=== PATIENT | male | born 1960 | race Caucasian/White ===

== ENCOUNTER → 2019-07-14 | Outpatient (CLI) | payer OTHER | LOC: SJCVC 12:10 → SJCVCIMAG 12:10 | DX: Z01.818 Encounter for other preprocedural examination (principal); I08.8 Other rheumatic multiple valve diseases; I44.30 Unspecified atrioventricular block; I65.23 Occlusion and stenosis of bilateral carotid arteries; R94.31 Abnormal electrocardiogram [ECG] [EKG]; I42.9 Cardiomyopathy, unspecified; I13.2 Hypertensive heart and chronic kidney disease with heart failure and with stage 5 chronic kidney disease, or end stage renal disease; N18.6 End stage renal disease; I50.43 Acute on chronic combined systolic (congestive) and diastolic (congestive) heart failure; I25.10 Atherosclerotic heart disease of native coronary artery without angina pectoris; I48.92 Unspecified atrial flutter; R53.83 Other fatigue; E78.00 Pure hypercholesterolemia, unspecified; F17.200 Nicotine dependence, unspecified, uncomplicated; Z99.2 Dependence on renal dialysis; Z79.899 Other long term (current) drug therapy ==

== ENCOUNTER 2019-07-21 10:47 | Inpatient (IN) | payer OTHER ==
[2019-07-21] VITALS (13 sets, daily range): BP systolic 113–138; BP diastolic 77–97
[~2019-07-21] VITALS: Ht 180.3 cm; Wt 101.3 kg
--- NOTE | ~2019-07-21 | HC ---
[facility] [place] [address] CONSULTATION Name: DEANA GOMEZ Gabo Room #: 213-P [facility]#: [id number] Admission: 07/21/19 Attend Phys: Tao Reyes MD, Discharge: Date of : 62 Report #: [id number] THIS REPORT FOR: cc: Ludmila Nguyễn Karen K. RNP Al-Absi, Ahmed I. MD ~ CC: Tao Nguyễn DATE OF SERVICE: 07/22/2019 REASON FOR THE CONSULTATION: End-stage renal disease. REASON FOR THE PRESENTATION: Post-cardiac cath. HISTORY OF PRESENT ILLNESS: A 59-year-old with past medical history of end-stage renal disease, maintained on hemodialysis. He was in the cardiac cath yesterday having a left- and right-sided heart catheterization for progressive dyspnea and severe left ventricular dysfunction that was found on the echo. Apparently, the patient has been on dialysis for the last 18 months. He attributed his end-stage renal disease due to uncontrolled hypertension. He dialyzes every Saturday, Saturday, Saturday. He was found to have significant pulmonary artery pressure. He was admitted for further evaluation and aggressive dialysis regimen. I was asked to evaluate his needs for daily dialysis needs to attain better volume control. MEDICATIONS: 1. Lisinopril. 2. Flomax. 3. Eliquis. 4. Metoprolol. PAST MEDICAL HISTORY: 1. Severe hypertension, uncontrolled. 2. Cardiomyopathy. 3. COPD. 4. Degenerative joint disease. 5. Post-hernia repair. 6. Remote history of heavy tobacco abuse. SOCIAL HISTORY: . Lives with his father. ALLERGIES: None. REVIEW OF SYSTEMS: GENERAL: No fever or chills. [facility] [address] [place] [address] CONSULTATION Name: DEANA GOMEZ Room #: 213-P [facility] Marilia#: [id number] Admission: 07/21/19 Attend Phys: Tao Reyes MD, Discharge: Date of : 62 Report #: [id number] CARDIOVASCULAR: No chest pain or palpitation. Significant for dyspnea on exertion. PULMONARY: Significant for dyspnea on exertion. GASTROINTESTINAL: No nausea or vomiting. GENITOURINARY: Minimal urine. No frequency, no urgency. MUSCULOSKELETAL: Occasional back pain. LABORATORY VALUES: Reviewed. Hemoglobin is 11.4. Sodium is 136, BUN is 46, creatinine 7.2. ASSESSMENT, IMPRESSION, PLAN: 1. End-stage renal disease. 2. Cardiomyopathy. 3. Hypertension. 4. Severe pulmonary hypertension. 5. We will work on daily dialysis and ultrafiltration. 6. We will discuss with the cardiac team regarding his pulmonary hypertension. 7. Resume his usual cardiomyopathy medications. 8. We will continue to follow. By: 0747 0815 Shahriar Brunner MD /nt
--- NOTE | ~2019-07-21 | H ---
[facility] [place] [address] HISTORY AND PHYSICAL Name: DEANA GOMEZ Room #: [facility]#: [id number] Admission: 07/21/19 Attend Phys: Tao Reyes MD, Discharge: Date of : 62 Report #: [id number] THIS REPORT FOR: cc: Ludmila Nguyễn Karen K. RNP ~ CC: Tao Nguyễn DATE OF SERVICE: 07/21/2019 HISTORY OF PRESENT ILLNESS: The patient is a 59-year-old male who I had brought in for right and left heart catheterization with some progressive dyspnea, shortness of breath and severe LV dysfunction in the office last week on an echo. He has been on end-stage kidney disease with hemodialysis for the last 18 months or so, but became progressively more short of breath and dyspneic. Right and left heart catheterization was performed, which revealed severe pulmonary hypertension and wedge pressure in the 30-32, PA pressure of 70s over 30s with diminished cardiac output, cardiac index. We placed him on admission for more aggressive diuresis and titration of medications. He is considering renal transplant, although at this state, he would not be a candidate. His coronary disease was mild in 3-vessel, but this LV dysfunction is relatively new since he was lost to follow up for me since 2014 until last week. I was trying to titrate up his beta kelly. He did not tolerate at all. So, he has held that for 2 days. He has been on Lasix. He makes some urine. Dialysis is Saturday, Saturday and Saturday. Lisinopril 40, Flomax, Eliquis 2.5 q. 12 hours, metoprolol 100, which he held, we try to increase him to 100, he did not tolerate this. PAST MEDICAL HISTORY: Positive for this, now idiopathic cardiomyopathy with a significant cardiorenal issue here with mild coronary disease, longstanding hypertension, hernia repair, vein surgery, DJD, COPD, prior heavy tobacco and alcohol. SOCIAL HISTORY: He is , has children. He lives with his father. He has disability. He is a prior heavy tobacco user, current little to a few drinks a week and a few cigarettes a day now, he states. Some caffeine. ALLERGIES: No known drug allergies. FAMILY HISTORY: Did not know his parents' medical history. REVIEW OF SYSTEMS: Negative except for stated above, progressive fatigue, shortness of breath and dyspnea. Marked increase in fatigue. No syncope. PHYSICAL EXAMINATION: [facility] [address] [place] [address] HISTORY AND PHYSICAL Name: DEANA GOMEZ Room #: [facility]#: [id number] Admission: 07/21/19 Attend Phys: Tao Reyes MD, Discharge: Date of : 62 Report #: [id number] GENERAL: He is not in acute distress. He is mildly dyspneic. VITAL SIGNS: Blood pressure is 120s/80s-90s pulse is 95-100. HEENT: Eyes reveal xanthelasmas. Pharynx is clear. NECK: Shows some evidence of JVD at approximately 4 cm. LUNGS: Clear anteriorly, diminished in the bases. Crackles are noted bilaterally. CARDIOVASCULAR: S1 and S2. There is a faint S3 summation gallop, faint holosystolic murmur at the apex. ABDOMEN: Soft, slightly distended. EXTREMITIES: Reveal trace of edemas. Pulses diminished, but intact. NEUROLOGIC: Nonfocal. SKIN: Warm and dry without xanthoma or ulcer. MUSCULOSKELETAL: Generalized arthritic changes. ASSESSMENT: 1. Severe apparent idiopathic cardiomyopathy, possibly hypertensive induced. 2. End-stage renal disease, on hemodialysis with marked volume overload. 3. Mild coronary artery disease. 4. History of longstanding hypertension. 5. Chronic obstructive pulmonary disease with prior heavy tobacco use. 6. Prior alcohol abuse. RECOMMENDATIONS AND PLAN: The patient was having worked up for renal transplant. Certainly we have got significant issues prior to consideration of that. We will ask Nephrology consult and to try to remove some of this fluid and need to titrate up medications as tolerated here. We have some blood pressure to play with here. His cardiac index is slightly over 2. Certainly a significant issue here and we will try to make some strides here with medications and volume overload. By: 1407 1423 /nt
[2019-07-21 11:32] LABS: HEMATOCRIT 35.7 % (42.0-52.0); HEMOGLOBIN 11.8 gm/dL (14.0-18.0); MCH 33.3 pg (26.0-34.0); MCHC 32.9 g/dL (28.0-37.0); MCV 101.1 fL (80.0-100.0); RBC 3.53 mil/uL (4.50-6.00); RDW 16.3 % (10.5-14.5); WBC 6.5 thou/uL (4.0-11.0)
[2019-07-21 11:44] LABS: CALCIUM 9.9 mg/dL (8.5-10.1); CREATININE 7.2 mg/dL (0.7-1.3); POTASSIUM 4.7 mmol/L (3.5-5.1)
[2019-07-21] MEDS ORDERED: LASIX 40 MG TAB40 MG PO (12:17)
[2019-07-21] MEDS ORDERED: HYDRALAZINE HC100 MG PO (12:18)
[2019-07-21] MEDS ORDERED: LISINOPRIL2.5 MG PO (12:19)
[2019-07-21] MEDS ORDERED: FLOMAX0.4 MG PO (12:20)
[2019-07-21] MEDS ORDERED: ELIQUIS2.5 MG PO (12:21)
[2019-07-21] MEDS ORDERED: TOPROL XL100 MG PO (12:22)
--- NOTE | 2019-07-21 13:22 | EKG ---
[facility] [place] [address] ELECTROCARDIOGRAM REPORT Name: DEANA GOMEZ Room #: [facility]#: [id number] Admission: 07/21/19 Attend Phys: Tao Reyes MD, Discharge: Date of : 62 Report #: [id number] THIS REPORT FOR: cc: Ludmila Nguyễn Karen K. RNP Couchonnal, Luis F. MD ~ THIS REPORT FOR: //name// [facility] Test Date: 2019-07-21 Test Time: 12:41:36 Pat Name: DEANA GOMEZ Department: Room: Gender: Rn Resource Nurse: Moncho GARCIA : 1960 Requested By: Tao Reyes Order Number: [id number] MD: Richar Laguerre Measurements Intervals [place] Rate: 98 P: 57 DE: 143 QRS: -55 QRSD: 144 T: 104 QT: 377 QTc: 482 Interpretive Statements Sinus rhythm Left bundle branch block No previous ECG available for comparison Electronically Signed On 07-21-2019 13:21:24 CDT by Richar Laguerre [email or web address] <ELECTRONICALLY SIGNED> By: Richar Laguerre MD 07/21/19 1321 1241 1241 Richar Laguerre MD /EPI
--- NOTE | 2019-07-21 16:38 | CATHLAB ---
[facility] [place] [address] INVASIVE PROCEDURE REPORT Name: JASONDEANA Room #: 213-P [facility] DAE GauthierMaryjoJessie#: [id number] Admission: 07/21/19 Attend Phys: Tao Reyes MD, Discharge: Date of : 62 Report #: [id number] THIS REPORT FOR: cc: Ludmila Nguyễn Karen K. RNP Mancuso, Gerald M. MD [facility] ~ APPROVED REPORT Study performed: 07/21/2019 12:42:25 Patient Details Patient Status: Out-Patient Room #: The patient is a 59 year-old male Event Personnel Tao Reyes Recreational Facilities Motel Manager, Grant Amaro RN, Elina Regan RTR, Michele Sandoval Roberta Monitor Procedures Performed Art Access - R femoral artery* Rickey Access - R femoral vein Hemostasis w/ Mynx Hemostasis with Manual pressure Right and Left Heart Cath w/or w/o Coronarie [id number] [facility] Renal Bilateral Peripheral Angiography [id number] CVRENALBIL 40444 Initial Mod Sed Same Phys/QHP Gr5y 651997 33644 Mod Sed Same Phys/QHP Ea 477125 Indication Chest pain Procedure Narrative The Right Groin^ was infiltrated with 1% Lidocaine subcutaneous anesthesia. A PINNACLE 6FR Sheath #[id number] sheath was inserted into the RFA 6F^. Coronary angiography was performed using coronary diagnostic catheters. The right coronary system was accessed and visualized with a JR4 catheter. The left coronary system was accessed and visualized with a JL5 catheter. The left ventricle was accessed and visualized with a STR PIG catheter. Left ventriculogram was performed in 30 degree projection. Hemostasis was obtained with manual pressure following sheath removal without any complications. The patient tolerated the procedure well and there were no complications associated with the procedure. There was no hematoma. Intraoperative Conscious Sedation Sedation start time: 1317 Case end Time: [facility] [place] [address] INVASIVE PROCEDURE REPORT Name: DEANA GOMEZ Room #: 213-P [facility]#: [id number] Admission: 07/21/19 Attend Phys: Tao Reyes, Discharge: Date of : 62 Report #: [id number] 1420 Fentanyl 100 mcg Versed 1.5 mg Fluoro Time: 1911.00 minutes Dose: DAP 66339.30 cGycm2 1011 mGy Contrast Type and Amount: Omnipaque 135 ml Hemodynamics The right atrial mean pressure is 29/24/26 mmHg. The right ventricular pressure is 61/37 mmHg. The pulmonary artery pressure is 69/42 mmHg with a mean of 52 mmHg. The mean pulmonary capillary wedge pressure is 29 mmHg. The aortic pressure is 131/89 mmHg with a mean of 103 mmHg. The left ventricular pressure is 124/18 mmHg with a mean of mmHg. The cardiac output using thermo method is 6.10 L/min. The cardiac index using thermo method is 2.84 L/min/m2. Conclusion #1. Successful right heart catheterization with market elevation in pulmonary pressures and pulmonary capillary wedge pressure see above hemodynamics. #2 left ventriculogram significantly dilated left ventricle with severe global hypokinesis EF 20% range with 1-2+ mitral regurgitation. #3 large left main with no significant occlusive disease giving rise to LAD and circumflex #4 LAD extends around the apex with mild irregularities no occlusive disease #5 circumflex OM nondominant with mild disease. #6 dominant right coronary artery mild Abdoulaye disease. No occlusive disease #7 left renal artery has an eccentric proximal lesion of 70% with severe distal attenuated disease #8 the right renal artery also has mild irregularity but is of severe diffusely attenuated disease Recommendations and plan: Patient is significantly volume overloaded severe suspected hypertensive and/or alcohol idiopathic cardiomyopathy. Market volume overload. Patient will be admitted to the hospital for attempted diuresis Nephrology consult patient is currently hemodialysis patient however is making some urine. Dialysis to remove significant volume in [address] [address] INVASIVE PROCEDURE REPORT Name: DEANA GOMEZ Room #: 213-P [facility]..#: [id number] Admission: 07/21/19 Attend Phys: Tao Reyes, Discharge: Date of : 62 Report #: [id number] addition. Titration of medications. He is hemodynamically stable upon transfer to the CCU. <ELECTRONICALLY SIGNED> By: Tao Reyes MD, FACC 07/21/191636 36 36 Tao Reyes MD, FACC /INF
--- NOTE | 2019-07-21 17:24 | NUR ---
PT ADMITED FROM [facility]. ADMISSION HX AND ASSESSMENT COMPLETED. VSS. RIGHT GROIN INCISION C/D/I. NO HAMATOMA NOTED. POST CARDIAC CATH INSTRUCTIONS GIVEN TO PT. PT VERBERLISED UNDERSTANDING. WILL CONTINUE TO MONITOR.
[2019-07-22] VITALS (15 sets, daily range): BP systolic 111–166; BP diastolic 62–99
[2019-07-22 00:58] LABS: HEMATOCRIT 32.2 % (42.0-52.0); HEMOGLOBIN 10.7 gm/dL (14.0-18.0)
--- NOTE | 2019-07-22 03:15 | NUR ---
Pt A&Ox4. VSS afebrile. SR with BBB on monitor. STBBB on monitor presently. Pt c/o R groin pain while getting vs at 2345. Hematoma noted. Pressure applied. Charge ns and preceptor notified and assisted with holding pressure. Dr Reyes notified of hematoma. Pt on strict bedrest. Am eliquis will be held. Stat hg done = 10. Morphine given x2 so far for pain 10/06 to right groin site.Instructed pt on strict bedrest and , to keep right leg straight. Right leg has good pulses and is warm to touch, O2 sats WNl 94- 100% on RA.
[2019-07-22 07:45] LABS: HEMATOCRIT 34.7 % (42.0-52.0); HEMOGLOBIN 11.4 gm/dL (14.0-18.0); MCH 33.3 pg (26.0-34.0); MCHC 32.9 g/dL (28.0-37.0); MCV 101.1 fL (80.0-100.0); RBC 3.43 mil/uL (4.50-6.00); RDW 16.6 % (10.5-14.5); WBC 7.8 thou/uL (4.0-11.0)
[2019-07-22 08:12] LABS: ALBUMIN 3.7 g/dL (3.4-5.0); CALCIUM 9.6 mg/dL (8.5-10.1); PHOSPHORUS 7.4 mg/dL (2.5-4.9)
[2019-07-22 08:17] LABS: POTASSIUM 5.8 mmol/L (3.5-5.1)
--- NOTE | 2019-07-22 09:33 | NUR ---
Pt had no further bleeding noted at right groin site. Hematoma has not increased. Pt insructed on bedrest and to keep leg straight. Day shift ns was notified to hold am eliquis. Hr slightly tachy but other VSS. No c/o Cp tonight but c/o SOA with head flat. O2 applied per preceptor. Good femoral and pedal pulses noted. Legs and feet are warm to touch. pain decreased with morphine given as ordered. Pt slept after second dose of morphine and benadryl for itching. Notified day shift ns that phosphate binder is needed to be ordered today when dr makes rounds per pt request.
--- NOTE | 2019-07-22 09:52 | EKG ---
[facility] [place] [address] ELECTROCARDIOGRAM REPORT Name: DEANA GOMEZ Gabo Room #: 213-[facility] M..#: [id number] Admission: 07/21/19 Attend Phys: Tao Reyes MD, Discharge: Date of : 62 Report #: [id number] THIS REPORT FOR: cc: Ludmila Nguyễn Karen K. RNP Lundgren, Craig H. MD [facility] ~ THIS REPORT FOR: //name// [facility] Test Date: 2019-07-22 Test Time: 07:16:33 Pat Name: DEANA GOMEZ Department: Room: 213 Gender: M Call Manager: RAJ : 1960 Requested By: Tao Reyes Order Number: [id number] MD: Deyvi Nelson Measurements Intervals [place] Rate: 98 P: IN: QRS: -54 QRSD: 150 T: 111 QT: 387 QTc: 495 Interpretive Statements Atrial fibrillation Left bundle branch block Compared to ECG 07/21/2019 12:41:36 Atrial fibrillation has replaced atrial flutter Electronically Signed On 07-22-2019 9:50:48 CDT by Deyvi Nelson [email or web address] <ELECTRONICALLY SIGNED> By: Deyvi Nelson MD, [facility] 07/22/19 0950 0716 0716 Deyvi Nelson MD, [facility] /EPI
--- NOTE | 2019-07-22 16:52 | NUR ---
PT CARE ASSUMED APPROX 0700. ASSESSMENTS CHARTED. DENIES PAIN AND SOA. VSS. PT COMPLETED HD THIS SHIFT WITHOUT ISSUE. UP WITH STEADY GAIT. RIGHT GROIN POST CATH SITE C/D/I WITHOUT HEMATOMA. PT TOLERATING POC. DENIES QUESTIONS OR CONCERNS REGARDING POC. NO DISTRESS NOTED.
--- NOTE | 2019-07-22 17:52 | NUR ---
PT WOKE UP AFTER HD AGITATED AND WANTING TO LEAVE AMA. DR VAUGHN WAS NOTIFIED AND CAME TO THE BEDSIDE TO TALK TO PT ABOUT POC AND CLINICAL STATE. PT REMAINED ADAMANT TO LEAVE. IV WAS REMOVED BUT PT REFUSED TO SIGN AMA PAPERWORK. PT REPORTED THAT HE WAS NOT UPSET BUT HE FELT GOOD ENOUGH TO DRIVE HOME. WHEN ASKED WHY HE COULDN'T SIGN THE AMA FORM IF HE WASN'T UPSET HE REPORTED THAT "THE FORM IS A LIE." SECURITY WAS PRESENT INTIIALLY AND MAINTAINER OPERATOR NOTIFIED. RODERICK AWARE. PT LEAVING UNIT AT THIS TIME.
[2019-07-23 07:07] LABS: HEP B SURFACE Ab(ANTI-HBS Reactive (()); HEPATITIS B SURFACE AG Negative (Negative)
== END 2019-07-22 18:15 | disposition left against medical advice (07) | DRG 286 ==
LOC: CATH 10:47 → 2N 13:55 → CATH 14:52 → 2N 15:06 → CATH 15:06 → 2N 07-22 18:15
PROVIDERS: Hospitalist; ADMIT Internal Medicine Cardiovascular Disease
PROC: B2111ZZ Fluoroscopy of Multiple Coronary Arteries using Low Osmolar Contrast (ICD-10-PCS; principal; 2019-07-21)
PROC: 4A023N8 Measurement of Cardiac Sampling and Pressure, Bilateral, Percutaneous Approach (ICD-10-PCS; principal; 2019-07-21)
PROC: B2151ZZ Fluoroscopy of Left Heart using Low Osmolar Contrast (ICD-10-PCS; principal; 2019-07-21)
PROC: 5A1D70Z Performance of Urinary Filtration, Intermittent, Less than 6 Hours Per Day (ICD-10-PCS; 2019-07-22)
DX: I25.10 Atherosclerotic heart disease of native coronary artery without angina pectoris (principal); N18.6 End stage renal disease; I12.0 Hypertensive chronic kidney disease with stage 5 chronic kidney disease or end stage renal disease; I42.8 Other cardiomyopathies; M19.90 Unspecified osteoarthritis, unspecified site; J44.9 Chronic obstructive pulmonary disease, unspecified; I48.91 Unspecified atrial fibrillation; E87.70 Fluid overload, unspecified; I27.20 Pulmonary hypertension, unspecified; Z79.82 Long term (current) use of aspirin; Z79.899 Other long term (current) drug therapy; Z53.29 Procedure and treatment not carried out because of patient's decision for other reasons
CPT/HCPCS: 10081; 32100